=== PATIENT | male | born 1995 | race Caucasian/White ===

== ENCOUNTER 2017-05-30 22:53 | Emergency (ER) | payer OTHER ==
[2017-05-30 23:55] VITALS: BP 130/52; PULSE 81; TEMP 98.4; BMI 24.0
--- NOTE | 2017-05-31 00:50 | PDOC ---
History of Present Illness - History of Present Illness Initial Comments: 05/31/17 00:53 The patient is a 22 year old male, with no significant past medical history, who presents to the emergency department with diffuse chest pain for about 9 hours. The patient states he was running to his car at 4PM yesterday when he developed the chest pain. He states the pain is constant. He reports movement exacerbates his pain. He denies any other complaints at this time. He denies shortness of breath, headache and dizziness. He denies fever, chills, nausea, vomit, diarrhea and constipation. He denies dysuria, frequency, urgency and hematuria. Allergies:NKDA Past surgical history: none reported Social history: Smokes hookah socially (last time Monday05/26/17) Family History: Hypertension (mother takes medications) <Shanon Garcia - Last Filed: 05/31/17 02:03> - General History Source: Patient <Rudi Leroy - Last Filed: 05/31/17 03:02> - General Chief Complaint: Chest Pain Stated Complaint: CHEST PAIN Time Seen by Provider: 05/31/17 00:47 Past History <Shanon Garcia - Last Filed: 05/31/17 02:03> - Suicide/Smoking/Psychosocial Hx Smoking History: Current some day smoker Have you smoked in the past 12 months: No Number of Cigarettes Smoked Daily: 5 Information on smoking cessation initiated: No Hx Alcohol Use: No Drug/Substance Use Hx: No <Rudi Leroy - Last Filed: 05/31/17 03:02> - Past Medical History Allergies/Adverse Reactions: Allergies Allergy/AdvReac Type Severity Reaction Status Date / Time No Known Allergies Allergy Verified 05/30/17 23:51 Home Medications: Ambulatory Orders Sulfamethoxazole/Trimethoprim [Bactrim Ds Tablet] 1 each PO BID #14 tablet 07/01 Ibuprofen 800 mg PO TID #30 tablet 05/31/17 Review of Systems - Review of Systems Able to Perform ROS?: Yes Comments:: 05/31/17 00:54 CONSTITUTIONAL: Absent: fever, chills, diaphoresis, generalized weakness, malaise, loss of appetite HEENT: Absent: rhinorrhea, nasal congestion, throat pain, throat swelling, difficulty swallowing, mouth swelling, ear pain, eye pain, visual Changes CARDIOVASCULAR: (+) chest pain, Absent: syncope, palpitations, irregular heart rate, lightheadedness, peripheral edema RESPIRATORY: Absent: cough, shortness of breath, dyspnea with exertion, orthopnea, wheezing, stridor, hemoptysis GASTROINTESTINAL: Absent: abdominal pain, abdominal distension, nausea, vomiting, diarrhea, constipation, melena, hematochezia GENITOURINARY: Absent: dysuria, frequency, urgency, hesitancy, hematuria, flank pain, genital pain MUSCULOSKELETAL: Absent: myalgia, arthralgia, joint swelling SKIN: Absent: rash, itching, pallor HEMATOLOGIC/IMMUNOLOGIC: Absent: easy bleeding, easy bruising, lymphadenopathy, frequent infections ENDOCRINE: Absent: unexplained weight gain, unexplained weight loss, heat intolerance, cold intolerance NEUROLOGIC: Absent: headache, focal weakness or paresthesias, dizziness, unsteady gait, seizure, mental status changes, bladder or bowel incontinence PSYCHIATRIC: Absent: anxiety, depression, suicidal or homicidal ideation, hallucinations. <Shanon Garcia - Last Filed: 05/31/17 02:03> *Physical Exam - Vital Signs Last Vital Signs Temp Pulse Resp BP Pulse Ox 98.4 F 81 14 130/52 100 05/30/17 23:52 05/30/17 23:52 05/30/17 23:52 05/30/17 23:52 05/30/17 23:52 - Physical Exam Comments: 05/31/17 00:54 GENERAL: Well developed, well nourished. Awake and alert. No acute distress. HEENT: Normocephalic, atraumatic. PERRLA, EOMI. No conjunctival pallor. Sclera are non- icteric. Moist mucous membranes. Oropharynx is clear. NECK: Supple. Full ROM. No JVD. Carotid pulses 2+ and symmetric, without bruits. No thyromegaly. No lymphadenopathy. CARDIOVASCULAR: Regular rate and rhythm. No murmurs, rubs, or gallops. Distal pulses are 2+ and symmetric. PULMONARY: No evidence of respiratory distress. Lungs clear to auscultation bilaterally. No wheezing, rales or rhonchi. ABDOMINAL: Soft. Non-tender. Non-distended. No rebound or guarding. No organomegaly. Normoactive bowel sounds. MUSCULOSKELETAL Normal range of motion at all joints. No bony deformities or tenderness. No CVA tenderness. EXTREMITIES: No cyanosis. No clubbing. No edema. No calf tenderness. SKIN: Warm and dry. Normal capillary refill. No rashes. No jaundice. NEUROLOGICAL: Alert, awake, appropriate. Cranial nerves 2-12 intact. Normoreflexic in the upper and lower extremities. Normal speech. Toes are down-going bilaterally. Gait is normal without ataxia. PSYCHIATRIC: Cooperative. Good eye contact. Appropriate mood and affect. <Shanon Garcia - Last Filed: 05/31/17 02:03> - Vital Signs Last Vital Signs Temp Pulse Resp BP Pulse Ox 98.4 F 81 14 130/52 100 05/30/17 23:52 05/30/17 23:52 05/30/17 23:52 05/30/17 23:52 05/30/17 23:52 <Rudi Leroy - Last Filed: 05/31/17 03:02> Heart Score/ECG Review - ECG Intrepretation Comment:: 05/31/17 02:03 EKG was read by Dr. Leroy at 01:40 Impression: Sinus bradycardia with marked sinus arrhythmias. Rightward axis. Vent. Rate: 57 bpm SC Interval: 204 ms QTc: 381 ms <Shanon Garcia - Last Filed: 05/31/17 02:03> Medical Decision Making - Medical Decision Making 05/31/17 03:01 Dr. Leroy: The scribe's documentation has been prepared under my direction and personally reviewed by me in its entirery. I confirm that the note above accurately reflects all work, treatment, procedures, and medical decision making performed by me. 05/31/17 03:01 pt chest ray and ekg are both normal. Pt feels better with Motrin 800mg po. Pt advised to follow up with his doctor for re-evaluation <Rudi Leroy - Last Filed: 05/31/17 03:02> *DC/Admit/Observation/Transfer - Attestations Scribe Attestion: 05/31/17 00:54 Documentation prepared by Shanon Garcia, acting as medical historian for Rudi Leroy DO <Shanon Garcia - Last Filed: 05/31/17 02:03> - Discharge Dispostion Admit: No <Rudi Leroy - Last Filed: 05/31/17 03:02> Diagnosis at time of Disposition: Chest wall pain Chest pain Qualifiers: Chest pain type: unspecified Qualified Code(s): R07.9 - Chest pain, unspecified - Discharge Dispostion Disposition: HOME Condition at time of disposition: Stable - Prescriptions Prescriptions: Ibuprofen 800 mg PO TID #30 tablet - Referrals Referrals: Ar Kim MD [Staff Physician] - Umang Paige MD [Staff Physician] - - Patient Instructions Printed Discharge Instructions: DI for Chest Pain Additional Instructions: Please follow up with your doctor or the doctor provided for re-evaluation if your symptoms continue. Take medication as directed. Print Language: RUSSIAN
[2017-05-31] MEDS ORDERED: IBUPROFEN 400 MG TABLET (FP) PO ONE ×2 (00:51→00:54)
--- NOTE | 2017-05-31 11:41 | EKG ---
Test Reason : Blood Pressure : / mmHG Vent. Rate : 057 BPM Atrial Rate : 057 BPM P-R Int : 204 ms QRS Dur : 102 ms QT Int : 392 ms P-R-T Axes : 026 090 070 degrees QTc Int : 381 ms SINUS BRADYCARDIA WITH MARKED SINUS ARRHYTHMIA RIGHTWARD AXIS BORDERLINE ECG NO PREVIOUS ECGS AVAILABLE Confirmed by ISSSY BROWER, MICAELA ([id number]) on 05/31/2017 11:41:18 AM Referred By: Confirmed By:MICAELA SHEEHAN MD
== END 2017-05-31 03:12 | disposition home or self-care (01) ==
LOC: JER 22:53
DX: R07.9 Chest pain, unspecified (principal); F17.210 Nicotine dependence, cigarettes, uncomplicated
CPT/HCPCS: 71020-TC; 93005; 93010; 99281-25

== ENCOUNTER 2017-08-30 04:11 | Emergency (ER) | payer OTHER ==
[2017-08-30 05:03] VITALS: BP 144/99; PULSE 64; TEMP 97.4; BMI 20.5
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
--- NOTE | 2017-08-30 05:22 | PDOC ---
*Physical Exam - Vital Signs Last Vital Signs Temp Pulse Resp BP Pulse Ox 97.4 F L 64 20 144/99 100 08/30/17 04:35 08/30/17 04:35 08/30/17 04:35 08/30/17 04:35 08/30/17 04:35 Medical Decision Making - Medical Decision Making 08/30/17 05:22 agree with care from VIOLETA Oneill *DC/Admit/Observation/Transfer Diagnosis at time of Disposition: Shoulder dislocation - Discharge Dispostion Disposition: HOME Condition at time of disposition: Improved - Prescriptions Prescriptions: Naproxen 500 mg PO BID #20 tablet - Referrals Referrals: Surjit Wiggins [Primary Care Provider] - - Patient Instructions Printed Discharge Instructions: DI for Shoulder Dislocation Additional Instructions: Discharge Instructions: -You had a shoulder dislocation that was put back into place -Please wear the sling for 4 weeks -Apply ice to shoulder to help with swelling and pain -A prescription for pain medication has been sent to your pharmacy; please take with food -Follow up with Dr. Marte within 2 weeks -No heavy lifting or exercising -Return to the ER immediately with any worsening or concerning symptoms - Post Discharge Activity
[2017-08-30] MEDS ORDERED: diazePAM CARPU-JECT 10 MG/2 ML DISP.SYRIN IVPUSH ONE (05:25)
[2017-08-30] MEDS ORDERED: LORazepam 2 MG/ML SDV VIAL ONE (05:45)
== END 2017-08-30 06:48 | disposition home or self-care (01) ==
LOC: JER 04:11
PROC: 0RSJXZZ Reposition Right Shoulder Joint, External Approach (ICD-10-PCS; principal; 2017-08-30)
PROC: 3E033NZ Introduction of Analgesics, Hypnotics, Sedatives into Peripheral Vein, Percutaneous Approach (ICD-10-PCS; 2017-08-30)
DX: S43.004A Unspecified dislocation of right shoulder joint, initial encounter (principal); W51.XXXA Accidental striking against or bumped into by another person, initial encounter; Y93.89 Activity, other specified; Y92.9 Unspecified place or not applicable
CPT/HCPCS: 23650; 73030-TC-RT-FY; 96374; 99281-25; 99282-25

== ENCOUNTER 2018-04-29 11:05 | Emergency (ER) | payer OTHER ==
[2018-04-29 11:21] VITALS: BP 119/56; PULSE 56; TEMP 98.7; BMI 22.4
[2018-04-29] MEDS ORDERED: IBUPROFEN 600 MG TABLET (FP) PO ONE (12:16)
[2018-04-29] MEDS ORDERED: IBUPROFEN 400 MG TABLET (FP) PO ONE (12:18)
--- NOTE | 2018-04-29 12:18 | PDOC ---
History of Present Illness - General Chief Complaint: Pain Stated Complaint: PAIN, RT HAND Time Seen by Provider: 04/29/18 11:51 History Source: Patient Exam Limitations: No Limitations - History of Present Illness Initial Comments: 04/29/18 12:18 23-year-old male presents to the emergency room with complaints of right palm pain to the base of his second and third digit for the past 2 days worsened with movement or palpation. Patient states was doing chest presses 3 days ago and pain started that night. Patient denies weakness, swelling, redness, or bruising to the area. Timing/Duration: other (2 days) Severity: mild Associated Symptoms: reports: denies symptoms Past History - Travel Traveled outside of the country in the last 30 days: No - Past Medical History Allergies/Adverse Reactions: Allergies Allergy/AdvReac Type Severity Reaction Status Date / Time No Known Allergies Allergy Verified 04/29/18 11:21 Home Medications: Ambulatory Orders NK [No Known Home Medication] 04/29/18 Anemia: No Asthma: No Cancer: No Cardiac Disorders: No CVA: No COPD: No DVT: No Dementia: No Diabetes: No Dialysis: No GI Disorders: No Disorders: No HTN: No Hypercholesterolemia: No Kidney Stones: No Liver Disease: No Psychiatric Problems: No Seizures: No Thyroid Disease: No Lung CA: No - Suicide/Smoking/Psychosocial Hx Smoking History: Never smoked Have you smoked in the past 12 months: No Number of Cigarettes Smoked Daily: 0 Hx Alcohol Use: No Drug/Substance Use Hx: No Substance Use Type: None Patient Lives Alone: No Lives with/in: parents Review of Systems - Review of Systems Able to Perform ROS?: No Constitutional: No: Symptoms Reported Musculoskeletal: Yes: Muscle Pain (rt 2nd and 3rd finger base) Integumentary: No: Symptoms Reported Neurological: No: Symptoms reported Endocrine: No: Symptoms Reported Hematologic/Lymphatic: No: Symptoms Reported *Physical Exam - Vital Signs Last Vital Signs Temp Pulse Resp BP Pulse Ox 98.7 F 56 L 18 119/56 L 99 04/29/18 11:18 18 11:18 18 11:18 04/29/18 11:18 04/29/18 11:18 - Physical Exam General Appearance: Yes: Nourished, Appropriately Dressed. No: Apparent Distress Extremity: positive: Normal Capillary Refill, Normal Inspection, Normal Range of Motion, Tender (over the palmar aspect of rt hand at the distal aspect of 2nd and 3rd phalange) Integumentary: positive: Normal Color, Warm, Moist Neurologic: positive: Motor Strength 5/5 (rt hand grasp) Medical Decision Making - Medical Decision Making 04/29/18 12:24 CC: rt hand pain, doing chest presses yojana;ier that day, discomfort has improved since yesterday when pain began Exam: tender to deep palpation, no other acute findings Plan: motrin here and continue at home as needed *DC/Admit/Observation/Transfer Diagnosis at time of Disposition: Contusion of hand - Discharge Dispostion Disposition: HOME Condition at time of disposition: Good - Referrals Referrals: Surjit Wiggins [Primary Care Provider] - - Patient Instructions Printed Discharge Instructions: DI for Contusion Additional Instructions: Please continue take Motrin 400 mg every 8 hours if symptoms improve after take today's dose. Allow area to rest - Post Discharge Activity
== END 2018-04-29 12:21 | disposition home or self-care (01) ==
LOC: JERFT 11:05
DX: S60.221A Contusion of right hand, initial encounter (principal); X50.9XXA Other and unspecified overexertion or strenuous movements or postures, initial encounter; Y93.B9 Activity, other involving muscle strengthening exercises; Y92.89 Other specified places as the place of occurrence of the external cause; Y99.8 Other external cause status
CPT/HCPCS: 99281-25

== ENCOUNTER 2018-09-12 17:10 | Emergency (ER) | payer OTHER ==
[2018-09-12 17:40] VITALS: BP 117/44; PULSE 57; TEMP 98.6; BMI 21.1
[2018-09-12] MEDS ORDERED: AZITHROMYCIN 500 MG TABLET PO ONE (18:20)
--- NOTE | 2018-09-12 18:28 | PDOC ---
History of Present Illness - General History Source: Patient Exam Limitations: No Limitations <Orquidea Barreto - Last Filed: 09/12/18 19:57> <Angeles Grimesh - Last Filed: 09/12/18 20:40> - General Chief Complaint: Penile Drainage Stated Complaint: PERSONAL Time Seen by Provider: 09/12/18 18:04 Past History - Past Medical History Anemia: No Asthma: No Cancer: No Cardiac Disorders: No CVA: No COPD: No DVT: No Dementia: No Diabetes: No Dialysis: No GI Disorders: No Disorders: No HTN: No Hypercholesterolemia: No Kidney Stones: No Liver Disease: No Psychiatric Problems: No Seizures: No Thyroid Disease: No Lung CA: No - Immunization History Immunization Up to Date: Yes - Suicide/Smoking/Psychosocial Hx Smoking History: Never smoked Have you smoked in the past 12 months: No Number of Cigarettes Smoked Daily: 0 Hx Alcohol Use: No Drug/Substance Use Hx: No Substance Use Type: None <Mary Lou,Orquidea - Last Filed: 09/12/18 19:57> <Yareli Grimes - Last Filed: 09/12/18 20:40> - Past Medical History Allergies/Adverse Reactions: Allergies Allergy/AdvReac Type Severity Reaction Status Date / Time No Known Allergies Allergy Verified 09/12/18 17:37 Home Medications: Ambulatory Orders NK [No Known Home Medication] 04/29/18 *Physical Exam - Vital Signs Last Vital Signs Temp Pulse Resp BP Pulse Ox 98.6 F 57 L 16 117/44 L 97 09/12/18 17:38 09/12/18 17:38 09/12/18 17:38 09/12/18 17:38 09/12/18 17:38 - Physical Exam General Appearance: No: Apparent Distress Respiratory/Chest: positive: Lungs Clear, Normal Breath Sounds. negative: Respiratory Distress Cardiovascular: positive: Regular Rhythm, Regular Rate, S1, S2. negative: Murmur Gastrointestinal/Abdominal: positive: Normal Bowel Sounds, Soft. negative: Tender, Distended, Guarding, Rebound Male Genitalia: positive: normal genitalia. negative: discharge, testicular tenderness Integumentary: negative: Rash Neurologic: positive: Alert, Normal Mood/Affect <Mary LouOrquidea - Last Filed: 09/12/18 19:57> - Vital Signs Last Vital Signs Temp Pulse Resp BP Pulse Ox 98.6 F 57 L 16 117/44 L 97 09/12/18 17:38 09/12/18 17:38 09/12/18 17:38 09/12/18 17:38 09/12/18 17:38 <Yareli Grimes - Last Filed: 09/12/18 20:40> ED Treatment Course - Medications Given in the ED: ED Medications Discontinued Medications Generic Name Dose Route Start Last Admin Trade Name Kenzie PRN Reason Stop Dose Admin Azithromycin 1,000 mg 09/12/18 18:20 09/12/18 18:47 Zithromax PO 09/12/18 18:21 1,000 mg ONCE ONE Administration Ceftriaxone Sodium 250 mg 09/12/18 18:20 09/12/18 18:47 Rocephin - IM 09/12/18 18:21 250 mg ONCE ONE Administration <Yareli Grimes - Last Filed: 09/12/18 20:40> Medical Decision Making - Medical Decision Making 23 y/o M hx of chlamydia (treated 2 years ago) presents with wanting STD workup after having unprotected intercourse with another female. Mentions having penile itching x 3 days. Denies fever, penile discharge, unusual rashes, dysuria , hematuria, n/v, abdominal pain. Plan: GC culture, HIV, RPR Will cover for possible GC with Ceftriaxone and Azithromycin 09/12/18 18:25 Patient pending results of HIV test Signed out to TAWANA Downs pending results 09/12/18 19:57 <Orquidea Barreto - Last Filed: 09/12/18 19:57> - Medical Decision Making 09/12/18 20:40 HIV testing is negative, patient was updated to plan and will follow-up with PMD. <Yareli Grimes - Last Filed: 09/12/18 20:40> *DC/Admit/Observation/Transfer - Discharge Dispostion Decision to Admit order: No <Orquidea Barreto - Last Filed: 09/12/18 19:57> - Discharge Dispostion Decision to Admit order: No <Yareli Grimes - Last Filed: 09/12/18 20:40> Diagnosis at time of Disposition: Concern about STD in male without diagnosis - Discharge Dispostion Disposition: HOME Condition at time of disposition: Stable - Referrals Referrals: Surjit Wiggins [Primary Care Provider] - 2 Days - Patient Instructions Printed Discharge Instructions: Facts About Sexually Transmitted Infections Additional Instructions: Thank you for choosing [facility]. It was a pleasure taking care of you. You were treated for possibly chlamydia and gonorrhea You will receive a callback regarding your cultures and the rest of your labs. In the meantime, refrain from sex for 1 week. Return to the Emergency Department if your symptoms worsen or persist or have other concerning symptoms. You been treated today with azithromycin 1 g by mouth for treatment of presumed chlamydia You have been treated with Rocephin 250 mg injection for treatment of presumned gonorrhea The syphilis test, gonorrhea and chlamydia testing will not be completed for the next few days. You may call and leave message for return phone call with lab results. Be sure to be clear with your name, birthdate, and phone number Always use condoms with the partners Followup with ORTHOPEDIC RN or PMD in one week for reevaluation and retesting. - Post Discharge Activity Forms/Work/School Notes: Back to Work
[2018-09-12] MEDS ORDERED: AZITHROMYCIN 250 MG TABLET ONE (18:41)
== END 2018-09-12 20:42 | disposition home or self-care (01) ==
LOC: JERFT 17:10
DX: Z11.3 Encounter for screening for infections with a predominantly sexual mode of transmission (principal)
CPT/HCPCS: 36415; 86593; 87389; 87491; 87591; 99281-25

== ENCOUNTER 2018-09-18 23:11 | Emergency (ER) | payer OTHER ==
[2018-09-18 23:21] VITALS: BP 117/53; PULSE 58; TEMP 98.3; BMI 21.1
--- NOTE | 2018-09-19 01:38 | PDOC ---
History of Present Illness - General Chief Complaint: Itching Stated Complaint: STD TESTING Time Seen by Provider: 09/18/18 23:36 History Source: Patient Exam Limitations: No Limitations Past History - Past Medical History Allergies/Adverse Reactions: Allergies Allergy/AdvReac Type Severity Reaction Status Date / Time No Known Allergies Allergy Verified 09/12/18 17:37 Home Medications: Ambulatory Orders Clotrimazole [Lotrimin -] 1 applic TP BID #1 tube 09/19/18 Mupirocin Ointment [Bactroban 2% Ointment -] 1 applic TP BID #1 tube 09/19/18 Anemia: No Asthma: No Cancer: No Cardiac Disorders: No CVA: No COPD: No DVT: No Dementia: No Diabetes: No Dialysis: No GI Disorders: No Disorders: No HTN: No Hypercholesterolemia: No Kidney Stones: No Liver Disease: No Psychiatric Problems: No Seizures: No Thyroid Disease: No Lung CA: No - Immunization History Immunization Up to Date: Yes - Suicide/Smoking/Psychosocial Hx Smoking History: Never smoked Have you smoked in the past 12 months: No Number of Cigarettes Smoked Daily: 0 Information on smoking cessation initiated: No Hx Alcohol Use: No Drug/Substance Use Hx: No Substance Use Type: None *Physical Exam - Vital Signs Last Vital Signs Temp Pulse Resp BP Pulse Ox 98.3 F 58 L 18 117/53 L 100 09/18/18 23:19 09/18/18 23:19 09/18/18 23:19 09/18/18 23:19 09/18/18 23:19 - Physical Exam General Appearance: No: Apparent Distress Respiratory/Chest: positive: Lungs Clear, Normal Breath Sounds. negative: Respiratory Distress Cardiovascular: positive: Regular Rhythm, Regular Rate, S1, S2. negative: Murmur Gastrointestinal/Abdominal: positive: Normal Bowel Sounds, Soft. negative: Tender, Distended, Guarding, Rebound Male Genitalia: positive: other (mild redness/whitish appearance along glans of penis, no discharge). negative: discharge, testicular tenderness, testicular mass, epididymus tender Neurologic: positive: Alert, Normal Mood/Affect Medical Decision Making - Medical Decision Making 23 y/o M recently seen last week for STD workup presents as states having penile itching after having intercourse with his girlfriend yesterday. Denies fever, penile discharge, urinary complaints. PE - likely balanitis Patient had STD workup last week - was positive for chlamydia for which he had already received treatment 09/19/18 01:34 *DC/Admit/Observation/Transfer Diagnosis at time of Disposition: Balanitis - Discharge Dispostion Disposition: HOME Condition at time of disposition: Stable Decision to Admit order: No - Prescriptions Prescriptions: Clotrimazole [Lotrimin -] 1 applic TP BID #1 tube Mupirocin Ointment [Bactroban 2% Ointment -] 1 applic TP BID #1 tube - Referrals Referrals: Surjit Wiggins [Primary Care Provider] - 2 Days - Patient Instructions Printed Discharge Instructions: DI for Balanitis Additional Instructions: Thank you for choosing [facility]. It was a pleasure taking care of you. Be sure to apply the prescribed topical creams Clean site well Follow-up with your doctor in 2-3 days Return to the Emergency Department if your symptoms worsen or persist or have other concerning symptoms. - Post Discharge Activity
== END 2018-09-19 02:45 | disposition home or self-care (01) ==
LOC: JER 23:11
DX: N48.1 Balanitis (principal)
CPT/HCPCS: 99281-25

== ENCOUNTER 2018-11-21 00:57 | Emergency (ER) | payer OTHER ==
[2018-11-21 01:55] VITALS: BP 123/56; PULSE 63; TEMP 98.6; BMI 20.4
[2018-11-21] MEDS ORDERED: AZITHROMYCIN 500 MG TABLET PO ONE (02:10)
[2018-11-21] MEDS ORDERED: AZITHROMYCIN 250 MG TABLET ONE (02:13)
[2018-11-21] MEDS ORDERED: LIDOCAINE HCL 2% JELLY 10 ML CARTRIDGE ONE (02:13)
--- NOTE | 2018-11-21 02:29 | PDOC ---
Documentation entered by Chelsea Luna SCRIBE, acting as scribe for Lurdes Ashford DO. Lurdes Ashford DO: This documentation has been prepared by the Jeremy coyne Adrianna, SCRIBE, under my direction and personally reviewed by me in its entirety. I confirm that the documentation accurately reflects all work, treatment, procedures, and medical decision making performed by me. Attending Attestation - Resident Resident Name: Aristides Hayesica - ED Attending Attestation I have performed the following: I have examined & evaluated the patient, The case was reviewed & discussed with the resident, I agree w/resident's findings & plan - HPI HPI: The patient is a 23 year old male, with a significant PMH of recurrent chlamydia (most recent case was 2months ago), who presents to the emergency department today for penile discharge for one day. Patient notes he has been experiencing penile discharge after having sexual intercourse with his girlfriend (who is also in the ED for similar symptoms). He endorses associated penile itching. The patient denies chest pain, shortness of breath, headache and dizziness. Denies fever, chills, nausea, vomit, diarrhea and constipation. Denies dysuria, frequency, urgency and hematuria. Allergies: NKA Past surgical history: None reported Social history: Currently sexually active PCP: Dr. Surjit Wiggins 11/21/18 02:25 - Physicial Exam PE: Agree with resident exam. 11/21/18 02:25 - Medical Decision Making 11/21/18 02:28 23-year-old male with penile itching and possible STD exposure Patient given ceftriaxone 250 mg IM as well as azithromycin in the emergency department His partner is also in the ED and is being treated as well
== END 2018-11-21 03:05 | disposition home or self-care (01) ==
LOC: JER 00:57
DX: N50.9 Disorder of male genital organs, unspecified (principal)
CPT/HCPCS: 36415; 87491; 87591; 96372; 99281-25

== ENCOUNTER 2019-04-23 22:46 | Emergency (ER) | payer OTHER ==
[2019-04-23 22:56] VITALS: TEMP 98.4; BMI 21.7
--- NOTE | 2019-04-23 23:15 | PDOC ---
*Physical Exam - Vital Signs Last Vital Signs Temp Pulse Resp BP Pulse Ox 98.4 F 74 18 134/74 100 04/23/19 22:54 04/23/19 22:54 04/23/19 22:54 04/23/19 22:54 04/23/19 22:54 Medical Decision Making - Medical Decision Making 04/23/19 23:15 Patient seen by the advanced practice provider under my direct supervision. Ancillary testing reviewed as necessary. I agree with plan as outlined by the advanced practice provider. Discharge - Discharge Information Problems reviewed: Yes Clinical Impression/Diagnosis: Possible exposure to STD, Penile pain - Follow up/Referral - Patient Discharge Instructions Patient Printed Discharge Instructions: Facts About Sexually Transmitted Infections Additional Instructions: refrain from sex for 1 week your partner should also be treated followup with your doctor - Post Discharge Activity Work/Back to School Note: Back to Work
--- NOTE | 2019-04-23 23:17 | PDOC ---
History of Present Illness - General Chief Complaint: Penile Drainage Stated Complaint: STD TESTING Time Seen by Provider: 04/23/19 23:13 History Source: Patient - History of Present Illness Initial Comments: 04/23/19 23:36 24 year old male c/o redness to tip of penis, patient reports that he was in [facility] and had unprotected sex with one female., unsure of STD exposure. denies testicular pain, dysuria, penile discharge. denies PMHX Past History - Past Medical History Allergies/Adverse Reactions: Allergies Allergy/AdvReac Type Severity Reaction Status Date / Time No Known Allergies Allergy Verified 04/23/19 22:54 Home Medications: Ambulatory Orders Clotrimazole [Lotrimin -] 1 applic TP BID #1 tube 09/19/18 Mupirocin Ointment [Bactroban 2% Ointment -] 1 applic TP BID #1 tube 09/19/18 Anemia: No Asthma: No Cancer: No Cardiac Disorders: No CVA: No COPD: No DVT: No Dementia: No Diabetes: No Dialysis: No GI Disorders: No Disorders: No HTN: No Hypercholesterolemia: No Kidney Stones: No Liver Disease: No Psychiatric Problems: No Seizures: No Thyroid Disease: No Lung CA: No - Immunization History Immunization Up to Date: Yes - Psycho Social/Smoking Cessation Hx Smoking History: Never smoked Have you smoked in the past 12 months: Yes Number of Cigarettes Smoked Daily: 0 Hx Alcohol Use: Yes Drug/Substance Use Hx: No Substance Use Type: None Review of Systems - Review of Systems Able to Perform ROS?: Yes Is the patient limited Danish proficient: No Constitutional: No: Symptoms Reported, See HPI, Chills, Diaphoresis, Fever, Loss of Appetite, Malaise, Night Sweats, Weakness, Weight Stable, Unintentional Wgt. Loss, Unexplained wgt Loss, Other *Physical Exam - Vital Signs Last Vital Signs Temp Pulse Resp BP Pulse Ox 98.4 F 74 18 134/74 100 04/23/19 22:54 04/23/19 22:54 04/23/19 22:54 04/23/19 22:54 04/23/19 22:54 - Physical Exam General Appearance: Yes: Appropriately Dressed Male Genitalia: positive: normal genitalia, other (clear discharge noted). negative: epididymus tender Neurologic: positive: Fully Oriented, Alert, Normal Mood/Affect ED Progress Note - Progress Note Progress Note: 04/23/19 23:40 A: STD exposure P: UA Urine culture GC ceftriaxone/ azithromycin Medical Decision Making - Medical Decision Making 04/24/19 01:27 UA : called lab. machine is down. pending results. will d/c patient home Discharge - Discharge Information Problems reviewed: Yes Clinical Impression/Diagnosis: Possible exposure to STD, Penile pain Condition: Stable Disposition: HOME - Follow up/Referral - Patient Discharge Instructions Patient Printed Discharge Instructions: Facts About Sexually Transmitted Infections Additional Instructions: refrain from sex for 1 week your partner should also be treated followup with your doctor - Post Discharge Activity Work/Back to School Note: Back to Work
[2019-04-23] MEDS ORDERED: AZITHROMYCIN 500 MG TABLET PO ONE (23:41)
[2019-04-23] MEDS ORDERED: AZITHROMYCIN 250 MG TABLET ONE (23:43)
[2019-04-23] MEDS ORDERED: LIDOCAINE HCL 1%, 10 MG/ML (20ML VIAL) ONE (23:43)
[2019-04-23] MEDS ORDERED: cefTRIAXone SODIUM 1 GM VIAL ONE (23:44)
[2019-04-24 02:19] VITALS: BP 132/79; PULSE 72
[2019-04-24 02:53] LABS: URINE APPEARANCE Clear; URINE BILIRUBIN Negative (NEGATIVE); URINE COLOR Yellow; URINE GLUCOSE (UA) Negative (NEGATIVE); URINE KETONE Negative (NEGATIVE); URINE LEUK ESTERASE Negative (NEGATIVE); URINE NITRITE Negative (NEGATIVE); URINE PROTEIN Negative (NEGATIVE); URINE UROBILINOGEN 0.2 mg/dL (0.2-1.0)
[2019-04-24 06:13] LABS: EPI CELLS FEW /HPF (0-5/HPF); URINE RBC 7 /hpf (0-4); URINE WBC 2 /hpf (0-5)
[2019-04-24 06:14] LABS: HYALINE CASTS 2 /lpf (0-8); URINE BACTERIA FEW /hpf (NEGATIVE)
== END 2019-04-24 01:40 | disposition home or self-care (01) ==
LOC: JER 22:46
DX: Z20.2 Contact with and (suspected) exposure to infections with a predominantly sexual mode of transmission (principal); Z72.51 High risk heterosexual behavior
CPT/HCPCS: 36415; 81003; 87086; 87491; 87591; 96372; 99283-25